=== PATIENT | male | born 1990 | race Caucasian/White ===

== ENCOUNTER 2021-10-06 14:51 | Emergency (ER) | payer MEDICAID, SELFPAY ==
[2021-10-06 14:53] VITALS: BP 113/74; PULSE 90; RESP 14; TEMP 36.3; O2SAT 99; BMI 24.7
--- NOTE | 2021-10-06 15:42 | EDS_ITS ---
HPI History of Present Illness Chief Complaint: Rash Informant: patient Onset/Context/Timing Onset: Days (5) Context: Gradual Onset Timing: Continuous Quality: Pruritic Location: Bilateral forearms and abdomen Worsened by: Nothing Relieved by: Nothing Narrative Narrative: Patient presents with a rash that has been getting worse over the last 5 days. Patient states it is over both forearms and abdomen. Patient states he was cutting wood recently. Patient states that nothing makes it better nothing makes it worse. Patient denies any fevers. Patient does admit to some subjective chills. Patient states he has been trying calamine lotion and Benadryl at home with minimal relief of the itching. [facility] Medical History (Updated 10/06/21 @ 15:[address] Vernon Murillo DO) ADD (attention deficit disorder) Anxiety Home Medications prednisone 60 mg PO DAILY #15 tablet 10/06/21 [Rx Last Taken Unknown] Allergy/AdvReac Type Severity Reaction Status Date / Time No Known Allergies Allergy Verified 10/06/21 14:54 Surgical History (Updated 10/06/21 @ 15:[address] Vernon Murillo DO) S/P ORIF (open reduction internal fixation) fracture Social History (Updated 10/06/21 @ 15:[address] Vernon Murillo DO) Smoking Status: Current every day smoker tobacco type: cigarettes ROS ROS ED Constitutional Constitutional ED: Reports chills and subjective; Denies fever(s) Eyes Eyes: Denies blurry vision or change in vision ENT ENT ED: Denies rhinorrhea or sore throat Cardiovascular Cardiovascular: Denies chest pain or palpitations Respiratory/Chest Respiratory/Chest: Denies cough or dyspnea Gastrointestinal Gastrointestinal: Denies nausea or vomiting Genitourinary Genitourinary ED: Denies dysuria or hematuria Musculoskeletal Musculoskeletal: Denies back pain or neck pain Integumentary Reports rash; Denies abscess Neurologic Neurologic: Denies headache(s) or weakness Allergic/Immunologic Allergic/Immunologic ED: Denies mouth swelling or urticaria EXAM Physical Exam Const Vital Signs: 10/06/21 14:53 Temperature 97.3 F L Temperature Source Temporal Pulse Rate 90 Respiratory Rate 14 Blood Pressure 113/74 Blood Pressure Mean 87 Pulse Ox 99 Oxygen Delivery Method Room Air Positive well nourished and well developed General Appearance ED: well developed and NAD HEENT Reports moist mucous membranes Neck supple and no JVD Chest Wall inspection of chest normal and palpation of chest normal Resp normal respiratory effort and clear to auscultation bilaterally Cardio regular rate and regular rhythm GI non-tender Palpation: soft Neuro oriented x3, CN's II-XII intact bilaterally and no sensory deficits noted Sensorium / Orientation: alert Motor Exam: strength 5/5 throughout Psych mental status grossly normal Skin Skin Narrative: There is an erythematous macular rash over the bilateral forearms and abdomen. There are areas of linear vesicles. There are no pustules noted. There is no active discharge or drainage. There is some crusting noted. There is no involvement of the mucous membranes. There are no petechia noted. MDM MDM MDM Narrative Medical decision making narrative: Patient was advised that this is consistent with poison shraddha. Patient was given a prescription for prednisone. Patient was given his first dose here. Patient was instructed to follow-up with his primary care physician in 5 to 7 days. Patient understood and was agreeable with the plan. All questions were answered. Discharge Plan Triage Chief Complaint: Rash ED Provider: Vernon Murillo Dx/Rx/DC Orders Clinical Impression: Contact dermatitis due to rhus toxicodendron Instructions: ED Poison Shraddha Rash Prescriptions: New prednisone 20 MG tablet 60 mg PO DAILY Qty: 15 RF: 0 Primary Care Provider: Bishop Nagel Referrals: Bishop Nagel MD [Primary Care Provider] - 5-7 Days Disposition Disposition: Home, Self Care
[2021-10-06] MEDS: predniSONE 20 MG Tablet 60 MG PO (15:53)
== END 2021-10-06 15:54 | disposition home or self-care (01) ==
PROVIDERS: Emergency Provider Emergency Medicine; PCP Family Medicine; Visit Provider Emergency Medicine
DX: L23.7 Allergic contact dermatitis due to plants, except food (principal); F17.210 Nicotine dependence, cigarettes, uncomplicated
CPT/HCPCS: 99282

== ENCOUNTER 2021-12-06 12:16 | Emergency (ER) | payer MEDICAID, SELFPAY ==
[2021-12-06 12:16] VITALS: BP 131/98; PULSE 100; RESP 15; TEMP 36.7; O2SAT 99; BMI 25.1
--- NOTE | 2021-12-06 12:46 | RAD_ITS ---
STUDY: X-RAY - LEFT CLAVICLE REASON FOR EXAM: Male, 31 years old. Pain TECHNIQUE: 2 view(s) of the clavicle. COMPARISON: None. FINDINGS: Normal clavicle. Normal acromioclavicular articulation. Normal visualized sternoclavicular articulation. Normal visualized pulmonary apex. RAD/Clavicle IMPRESSION: Normal x-ray examination of the clavicle. Electronically Signed: Jerome Dill MD at 13:26 EDT ,
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
== END 2021-12-06 13:43 | disposition home or self-care (01) ==
PROVIDERS: Emergency Provider Student in an Organized Health Care Education/Training Program; PCP Family Medicine; Visit Provider Student in an Organized Health Care Education/Training Program
DX: S40.012A Contusion of left shoulder, initial encounter (principal); V86.06XA Driver of dirt bike or motor/cross bike injured in traffic accident, initial encounter; Y92.410 Unspecified street and highway as the place of occurrence of the external cause; F17.210 Nicotine dependence, cigarettes, uncomplicated
CPT/HCPCS: 73000; 99282